=== PATIENT | female | born 1980 | race Caucasian/White ===

== ENCOUNTER 2017-07-21 05:36 | Inpatient (IN) | payer MEDICAID ==
[~2017-07-21] VITALS: Ht 167.6 cm; Wt 99.3 kg
[2017-07-21] MEDS ORDERED: DEXT 5%/LR + PITOCIN 20UNITS/L 1,000 ML IV SCH ×2 (06:52→18:00)
[2017-07-21] MEDS ORDERED: LACTATED RINGERS 1,000 ML IV SCH (06:52)
[2017-07-21] MEDS ORDERED: PNV1TABL76 MT (06:58)
[2017-07-21] MEDS ORDERED: CARBOPROST TROMETHAMINE 250 MCG/ML AMPUL IM PRN (07:00)
[2017-07-21] MEDS ORDERED: METHYLERGONOVINE MALEATE 0.2 MG/ML IM PRN (07:00)
[2017-07-21] MEDS ORDERED: NALOXONE HCL 0.4 MG/ML 1ML VIAL IM PRN (07:00)
[2017-07-21 07:10] LABS: CLARITY URINE CLEAR (CLEAR); COLOR URINE YELLOW (YELLOW); GLUCOSE URINE NEGATIVE (NEGATIVE); KETONES URINE NEGATIVE (NEGATIVE); LEUKOCYTE ESTERASE URINE NEGATIVE (NEGATIVE); NITRITE URINE NEGATIVE (NEGATIVE); OCCULT BLOOD URINE NEGATIVE (NEGATIVE); PROTEIN URINE NEGATIVE (NEGATIVE); SPECIFIC GRAVITY URINE 1.012 (1.005-1.030); UROBILINOGEN URINE 0.2 E.U./dL (0.2-1.0)
[2017-07-21 07:14] LABS: BASOPHILS % 0.3 % (0.0-2.0); EOSINOPHILS % 0.4 % (0.0-5.0); HEMATOCRIT. 35.5 % (36.0-48.0); HEMOGLOBIN. 12.2 g/dL (12.0-16.0); LYMPHOCYTES % 32.9 % (20.0-50.0); MEAN CORPUSCULAR HEMOGLOBIN 31.7 pg (28.0-32.0); MEAN CORPUSCULAR VOLUME 92.4 fL (81.0-99.0); MEAN PLATELET VOLUME 11.4 fl (7.4-10.4); MONOCYTES % 5.7 % (2.0-8.0); NEUTROPHILS % 60.7 % (40.0-76.0); PLATELET 114 x1000/uL (130-400); RED BLOOD CELL COUNT 3.84 mill/uL (4.2-5.4); RED CELL DISTRIBUTION WIDTH 13.8 % (11.6-14.6)
[2017-07-21 07:16] LABS: INR 0.9; PARTIAL THROMBOPLASTIN TIME 28.3 sec (23.4-31.0); PROTHROMBIN TIME 9.5 sec (9.4-11.6)
[2017-07-21] MEDS ORDERED: MORPHINE SULFATE/PF 1MG/ML 10ML AMP ONE (07:41)
[2017-07-21] MEDS ORDERED: PHENYLEPHRINE HCL 10 MG/ML 1ML (IV VIAL) IV ONE (07:41)
[2017-07-21] MEDS ORDERED: ONDANSETRON HCL 4MG/2ML VIAL ONE (07:41)
[2017-07-21] MEDS ORDERED: EPHEDRINE SULFATE 50MG/ML VIAL ONE (07:41)
[2017-07-21] MEDS ORDERED: MIDAZOLAM HCL 2 MG/2 ML VIAL ONE (07:41)
[2017-07-21] MEDS ORDERED: DEXAMETHASONE 4MG/ML 1ML VIAL ONE (07:41)
[2017-07-21] MEDS ORDERED: OXYTOCIN 10 UNITS/ML 1ML ONE (07:41)
[2017-07-21] MEDS ORDERED: CEFAZOLIN 2000MG PREMIX 100 ML IV ONE (07:41)
[2017-07-21 07:45] LABS: HEPATITIS B SURFACE ANTIGEN NEGATIVE; RUBELLA IGG 5.7 IU/mL (4.99-10)
[2017-07-21 07:46] LABS: CHLORIDE 108 mEq/L (98-107)
[2017-07-21 07:54] LABS: CARBON DIOXIDE 20 mEq/L (21-32)
[2017-07-21] MEDS ORDERED: HYDROMORPHONE HCL/PF 2MG/ML CPJ IM PRN (10:30)
[2017-07-21] MEDS ORDERED: IBUPROFEN 400MG TABLET PO PRN (10:30)
[2017-07-21] MEDS ORDERED: BISACODYL 10MG SUPP PR PRN (10:30)
[2017-07-21] MEDS ORDERED: ACETAMINOPHEN WITH CODEINE 300/30MG TABLET PO PRN (10:30)
[2017-07-21] MEDS ORDERED: RHO(D) IMMUNE GLOBULIN 300 MCG/SYR IM PRN (10:30)
[2017-07-21 12:50] VITALS: BP 151/69
[2017-07-21 13:20] VITALS: BP 148/77
[2017-07-21] MEDS ORDERED: ONDANSETRON HCL 4MG/2ML VIAL IV PRN (13:30)
[2017-07-21] MEDS ORDERED: NALOXONE HCL 0.4 MG/ML 1ML VIAL IV PRN (13:30)
[2017-07-21] MEDS ORDERED: DIPHENHYDRAMINE 50MG/ML VIAL IV PRN (13:30)
[2017-07-21 14:29] LABS: *AMPHETAMINES SCREEN URINE NEGATIVE (NEGATIVE); *BARBITURATES SCREEN URINE NEGATIVE (NEGATIVE); *BENZODIAZEPINES SCREEN URINE NEGATIVE (NEGATIVE); *COCAINE SCREEN URINE NEGATIVE (NEGATIVE); CANNABINOID URINE SCREEN NEGATIVE (NEGATIVE); METHADONE URINE SCREEN NEGATIVE (NEGATIVE); OPIATES URINE SCREEN NEGATIVE (NEGATIVE); PHENCYCLIDINE URINE SCREEN NEGATIVE (NEGATIVE)
[2017-07-21 16:50] VITALS: BP 128/64
[2017-07-21 20:00] VITALS: BP 120/69
[2017-07-21] MEDS: KETOROLAC 30MG/ML VIAL IV SCH (23:44)
[2017-07-22] VITALS: BP 122/70
[2017-07-22] MEDS: KETOROLAC 30MG/ML VIAL IV SCH (05:11)
[2017-07-22 05:13] VITALS: BP 125/68
[2017-07-22 06:55] LABS: BASOPHILS % 0.2 % (0.0-2.0); EOSINOPHILS % 0.1 % (0.0-5.0); HEMATOCRIT. 30.2 % (36.0-48.0); HEMOGLOBIN. 10.1 g/dL (12.0-16.0); LYMPHOCYTES % 21.7 % (20.0-50.0); MEAN CORPUSCULAR VOLUME 92.9 fL (81.0-99.0); MEAN PLATELET VOLUME 11.4 fl (7.4-10.4); MONOCYTES % 5.8 % (2.0-8.0); NEUTROPHILS % 72.2 % (40.0-76.0); PLATELET 101 x1000/uL (130-400); RED BLOOD CELL COUNT 3.25 mill/uL (4.2-5.4); RED CELL DISTRIBUTION WIDTH 14.2 % (11.6-14.6)
[2017-07-22 08:22] VITALS: BP 139/56
[2017-07-22] MEDS: IBUPROFEN 800MG TABLET PO PRN (16:07)
[2017-07-22 19:10] VITALS: BP 139/80
[2017-07-22 22:40] VITALS: BP 141/87
[2017-07-23 04:00] VITALS: BP 139/86
[2017-07-23 08:00] VITALS: BP 155/92
[2017-07-23 09:45] VITALS: BP 141/87
[2017-07-23 09:47] VITALS: BP_SYST 125; BP_SYST 127; BP_DIAS 73; BP_DIAS 78
[2017-07-23] MEDS: IBUPROFEN 800MG TABLET PO PRN (16:17)
[2017-07-23 16:23] VITALS: BP 125/83
[2017-07-23 20:00] VITALS: BP 135/84
[2017-07-24 07:30] VITALS: BP 150/96
[2017-07-24 08:30] VITALS: BP 145/77
== END 2017-07-24 14:06 | disposition home or self-care (01) | DRG 540 ==
LOC: OBSVTOIN 05:36 → L&D 05:36 → 7EST PP/OB 12:35
PROVIDERS: ADMIT Obstetrics & Gynecology; ATTEND Obstetrics & Gynecology
PROC: 0U570ZZ Destruction of Bilateral Fallopian Tubes, Open Approach (ICD-10-PCS; 2017-07-21)
PROC: 10D00Z1 Extraction of Products of Conception, Low, Open Approach (ICD-10-PCS; principal; 2017-07-21 10:07)
DX: O34.211 Maternal care for low transverse scar from previous cesarean delivery (principal); O10.92 Unspecified pre-existing hypertension complicating childbirth; O24.420 Gestational diabetes mellitus in childbirth, diet controlled; O99.214 Obesity complicating childbirth; O99.02 Anemia complicating childbirth; D64.9 Anemia, unspecified; E66.01 Morbid (severe) obesity due to excess calories; O09.523 Supervision of elderly multigravida, third trimester; O09.43 Supervision of pregnancy with grand multiparity, third trimester; Z30.2 Encounter for sterilization; Z37.0 Single live birth; Z68.35 Body mass index [BMI] 35.0-35.9, adult; Z3A.39 39 weeks gestation of pregnancy; Z82.49 Family history of ischemic heart disease and other diseases of the circulatory system; Z83.3 Family history of diabetes mellitus
CPT/HCPCS: 36415; 80053; 80305; 81003; 82962; 84550; 85025; 85384; 85610; 85730; 86592; 86703; 86762; 86850; 86900; 87340; 88307; G0378; J0171; J0690; J1100; J1170; J1200; J1885; J2250; J2274; J2370; J2405; J2590; J7120; A4315